=== PATIENT | female | born 1965 | race Caucasian/White ===

== ENCOUNTER 2017-08-27 07:49 | Inpatient (IN) | payer OTHER ==
[~2017-08-27] VITALS: Ht 167.6 cm; Wt 81.6 kg
--- NOTE | 2017-08-27 11:10 | NUR ---
Pre-Assessment Note Assessed client in intake office, client vitals BP 138/73, P 91, RR 16, Temp 98.4, spO2 @ 98% pain 3/10 chronic pain on bilateral legs and R shoulder. Client is a/o x 4, explained unit and facility protocols, client verbalized understanding.
--- NOTE | 2017-08-27 11:45 | NUR ---
Admissions Note 52 year old female admitted to [facility] for withdrawal from alcohol. Client reports PMH hypothyroidism, lymphedema, arthritis, Meniere's disease (2013), migraine, Insomnia. Past surgical history: Breast reduction (1999), gastric bypass (2002), cholecystectomy (1996). Home medications have been reconciled. Client is oriented to unit, educated about protocols and how to work TV and call light in her room. Weight: 180 pounds. Height: 5'6" CIWA 3 Client appears anxious and clammy skin, skin intact. Edema +1 non-pitting at bilateral lower extremities. Bilateral lung clear on auscultation, abdomen soft, non-tender. Clients voice is soft, she avoids eye contact. Client reports allergy to NSAIDS, aspirin. Vegan diet ordered. Full code status ordered. Client denies any history of seizures. LBM was 08/27/17, small/brown/soft. Clients PCP is Dr. Doan. She declined PNA and FLU vaccine at this time, stating she is afraid she might get sick because of it. Client states that she lives with her . Client substance use is as follow, she first started consuming alcohol at age 13, and slowly staring increasing. Now she consumes 1-2 bottles of wine 2 times a week for the past 8 years, except for her longest period of sobriety from Jun 17, 2013 to Oct 28, 2014. Last time consumed 0600 this morning, couple of vodka shots. She reports a prior treatment at [facility] for [address] Reed is with client. Urine was collected upon admission. All safety measures instituted. Seizure precaution. Call light within reach. Will continue to monitor.
[2017-08-27] MEDS ORDERED: NALT50TA PO (12:01)
[2017-08-27] MEDS ORDERED: THYR30TA2 PO (12:01)
[2017-08-27] MEDS ORDERED: SUMA100T PO (12:01)
[2017-08-27] MEDS ORDERED: ONDA8TAB6 PO (12:01)
[2017-08-27] MEDS ORDERED: LACT1CAP59 PO (12:01)
[2017-08-27 12:30] VITALS: BP 125/72
[2017-08-27] MEDS ORDERED: MAGNESIUM HYDROXIDE 30 ML LIQUID UDC PO PRN (13:45)
[2017-08-27] MEDS ORDERED: LOPERAMIDE HCL 2 MG CAPSULE PO PRN ×2 (13:45)
[2017-08-27] MEDS ORDERED: LORAZEPAM 1 MG TABLET PO PRN ×2 (13:45)
[2017-08-27] MEDS ORDERED: SUMATRIPTAN 100 MG PO PRN (13:45)
[2017-08-27] MEDS ORDERED: LORAZEPAM 2 MG/1 ML VIAL IM PRN (13:45)
[2017-08-27] MEDS ORDERED: ONDANSETRON 4 MG/2 ML VIAL IM PRN (13:45)
[2017-08-27] MEDS ORDERED: CLONIDINE HCL 0.1 MG TABLET PO PRN (13:45)
[2017-08-27] MEDS ORDERED: ONDANSETRON ODT 4 MG TAB.RAPDIS SL PRN (13:45)
[2017-08-27] MEDS ORDERED: MAG HYDROX/AL HYDROX/SIMETH 30 ML LIQUID UDC PO PRN (13:45)
[2017-08-27] MEDS ORDERED: DICYCLOMINE HCL 20 MG TABLET PO PRN (13:45)
[2017-08-27] MEDS ORDERED: ACETAMINOPHEN 325 MG TABLET PO PRN (13:45)
[2017-08-27] MEDS ORDERED: IBUPROFEN 400 MG TABLET PO PRN (13:45)
[2017-08-27] MEDS ORDERED: MIRALAX 17 GM POWD.PACK PO PRN (13:45)
[2017-08-27] MEDS ORDERED: diphenhydrAMINE 50 MG CAPSULE PO PRN (13:45)
[2017-08-27] MEDS ORDERED: THIAMINE HCL 200 MG/2 ML VIAL IM ONE (14:00)
--- NOTE | 2017-08-27 14:16 | NUR ---
PRN Zofran 4mg SL administered for emesis x 1 and nausea. Call light within reach. Will continue to monitor. Client refused lazaor erik and saltine crackers.
[2017-08-27 14:33] LABS: *AMPHETAMINE, URINE NEGATIVE (NEGATIVE); *BARBITURATE, URINE NEGATIVE (NEGATIVE); *CANNABINOID, URINE NEGATIVE (NEGATIVE); *COCCAINE, URINE NEGATIVE (NEGATIVE); *OPIATE, URINE NEGATIVE (NEGATIVE); *PHENCYCLIDINE SCREEN,URINE NEGATIVE (NEGATIVE)
[2017-08-27 14:35] LABS: *URINE HCG, QUAL NEGATIVE (NEGATIVE)
--- NOTE | 2017-08-27 14:46 | NUR ---
Reassessment PRN Zofran 4mg SL, client repoerst no more episodes of emesis and relief from nausea.
[2017-08-27 15:17] LABS: BASOPHILS % (AUTO) 0.4 % (0.0-2.0); EOSINOPHILS # (AUTO) 0.2 K/uL (0.0-0.7); EOSINOPHILS % (AUTO) 1.9 % (0.0-7.0); HEMATOCRIT 36.2 % (31.2-41.9); HEMOGLOBIN 12.1 g/dL (10.9-14.3); LYMPHOCYTES # (AUTO) 3.8 K/uL (20.0-40.0); LYMPHOCYTES % (AUTO) 47.3 % (20.5-51.5); MEAN CORPUSCULAR HGB CONC 34 g/dL (32.3-35.6); MEAN CORPUSCULAR VOLUME 89.4 fL (75.5-95.3); MONOCYTES # (AUTO) 0.6 K/uL (2.0-10.0); MONOCYTES % (AUTO) 7.5 % (0.0-11.0); NEUTROPHILS # (AUTO) 3.4 K/uL (1.8-8.9); NEUTROPHILS % (AUTO) 42.9 % (38.5-71.5); PLATELET COUNT (AUTO) 276 K/uL (179-408); RED BLOOD CELL COUNT(AUTO) 4.05 MIL/uL (3.63-4.92)
[2017-08-27 15:19] LABS: THYROID STIMULATING HORMONE 0.295 mIU/mL (0.358-3.740)
[2017-08-27 15:28] LABS: BILIRUBIN,TOTAL 0.1 mg/dL (0.2-1.0); CREATININE 0.8 mg/dL (0.6-1.3); MAGNESIUM 1.8 mg/dL (1.8-2.4); POTASSIUM 4.6 mmol/L (3.5-5.1); TOTAL PROTEIN, SERUM 6.1 g/dL (6.4-8.2)
--- NOTE | 2017-08-27 15:40 | NUR ---
Dr. Reed cotified of alcohol level 0.11, NNO at this time. Client is in room, she is a/o x 4. Will continue to monitor.
[2017-08-27 16:55] VITALS: BP 127/67
--- NOTE | 2017-08-27 17:47 | NUR ---
PRN Imitrex 100mg PO administered for 4/10 ESPINAL. Encourage client to increase PO fluid as tolerated. Call light within reach.
--- NOTE | 2017-08-27 19:27 | NUR ---
END OF SHIFT Client is a 52 y/o female, admitted to [facility] for withdrawal from alcohol. Last CIWA 4 @ 1600. PRN Zofran 4mf SL for nausea, Imitrex 100mg PO for migraine, noted effective. VTE 2, IPCD on, client tolerating well. Adequate PO fluid intake 1096 mL, void x 3, LBM 08/27/17. She denies a hx of seizures. Client reports Allergy to NSAIDS, ASA, full code, VEGAN diet. Client side rails x 2 up/padded. Seizure precautions. Call light within reach.
[2017-08-27 20:00] VITALS: BP_SYST 137; BP_DIAS 74; BP_DIAS 90
--- NOTE | 2017-08-27 20:00 | NUR ---
START OF SHIFT NOTE RECEIVED REPORT FROM DAY SHIFT NURSE. PATIENT IS A 52 YEAR OLD FEMALE ADMITTED FOR ETOH DEPENDENCE. PATIENT IS UNDER OBSERVATION, NO TAPER YET. UPON ADMISSION, PATIENT IS DRINKING 1-3 BOTTLES, 2X A WEEK FOR A YEARS. NO SEIZURE HISTORY. ALLERGIC TO NSAIDS AND ASPIRIN. ON VEGAN DIET. SKIN INTACT. PRN IMITREX AND ZOFRAN GIVEN. SCD PUMP IN PLACE. LAST CIWA 3. RECEIVED PATIENT ALERT AND ORIENTED X 4. RESPIRATION EVEN AND UNLABORED.NO N/V, ANXIOUS, DENIES ANY PAIN AT THIS TIME, PER PATIENT SHE WAS NAUSEOUS AND HAD HEADACHE EARLIER, ZOFRAN AND IMITREX WA EFFECTIVE. ON FALL/SEIZURE PRECAUTION. SAFETY MEASURES IN PLACE. CALL LIGHT IN REACH. WILL CONTINUE TO MONITOR.
[2017-08-28] VITALS: BP 135/76
--- NOTE | 2017-08-28 | NUR ---
CIWA DEFERRED PATIENT SLEEPING. CIWA DEFERRED. RESPIRATION EVEN AND UNLABORED. SAFETY MEASURES IN PLACE. CALL LIGHT IN REACH. WILL CONTINUE TO MONITOR
[2017-08-28 04:00] VITALS: BP 136/79
--- NOTE | 2017-08-28 04:00 | NUR ---
CIWA DEFERRED PATIENT SLEEPING. CIWA DEFERRED. RESPIRATION EVEN AND UNLABORED. SAFETY MEASURES IN PLACE. CALL LIGHT IN REACH. WILL CONTINUE TO MONITOR
[2017-08-28] MEDS: ARMOUR THYROID 30 MG PO SCH (06:31)
[2017-08-28 07:07] LABS: VIT D, 25-HYDROXY 41.4 ng/mL (30.0-100.0)
--- NOTE | 2017-08-28 07:19 | NUR ---
END OF SHIFT NOTE PATIENT IS HERE FOR ETOH DEPENDENCE, PATIENT IS UNDER OBSERVATION, NO TAPER YET. UPON ADMISSION, PATIENT IS DRINKING 1-3 BOTTLES, 2X A WEEK FOR A YEAR. NO SEIZURE HISTORY. ALLERGIC TO NSAIDS AND ASPIRIN. ON VEGAN DIET. SKIN INTACT. MONITORED PATIENT THROUGHOUT THE SHIFT. PATIENT DID NOT REQUIRE ANY PRN MEDICATION DURING SHIFT. PATIENT IN HER ROOM MOST OF THE NIGHT. ENCOURAGE FLUIDS.PATIENT COMPLIANT WITH MEDICATION. ON FALL/SEIZURE PRECAUTION. SAFETY MEASURES IN PLACE. CALL LIGHT IN REACH. WILL CONTINUE TO MONITOR. SLEPT 6 HOURS. FLUID INTAKE 1,409 ML. VOIDED X 3. NO BM. LAST CIWA 3. ENDORSED TO NEXT SHIFT , PATIENT IS REQUESTING FOR DIFFERENT SLEEP MEDICATION.
--- NOTE | 2017-08-28 07:30 | NUR ---
Start of shift note: received pt from retail shift manager nurse, pt is in stable condition no s/s of pain or discomfort, pt is admitted to [facility] for ETOH withdrawal/dependence.pt's last ciwa is 3. will continue to monitor pt for any changes and continue to meet pt's needs
[2017-08-28 09:00] VITALS: BP 135/71
[2017-08-28] MEDS ORDERED: TUBERCULIN,PURIF.PROT.DERIV. 5 TU/0.1 ML TEST ID ONE (09:00)
[2017-08-28] MEDS: FOLIC ACID 1 MG TABLET PO SCH (09:33)
[2017-08-28] MEDS: MULTIVITAMINS,THERAPEUTIC TABLET PO SCH (09:33)
[2017-08-28] MEDS: THIAMINE HCL 100 MG TABLET PO SCH (09:33)
[2017-08-28 13:00] VITALS: BP 124/68
[2017-08-28 14:07] LABS: HEPATITIS B SURFACE AG Negative (Negative)
[2017-08-28 17:19] VITALS: BP 147/82
--- NOTE | 2017-08-28 18:51 | NUR ---
END OF SHIFT NOTE: PT IS IN STABLE CONDITION AT THIS TIME, TB SKIN TEST WAS ADMINISTERED, PT IS ADMITTED TO [facility] FOR ETOH WITHDRAWAL/DEPENDENCE. PT RECEIVED TB SKIN TEST. NO ADVERSE REACTION NOTED AT THIS TIME, PT IS ON PRN TREATMENT AND NOT PRN'S WERE ADMINISTERED. PT'S LAST CIWA IS 2
[2017-08-28 20:00] VITALS: BP 144/74
--- NOTE | 2017-08-28 20:00 | NUR ---
Start of Shift Pt is a 52 year old female admitted for ETOH, PRNs available for s/s of withdrawal. Pt reported consuming ETOH 1-2 bottles 2x week. PMH: hypothyroidism, menieres disease, migraines, breast reduction, cholecystectomy, gastric bypass and knee meniscus repair. Pt reports allergies to NSAIDS & aspirin, fall/seizure precautions, vegan diet and full code. Upon assessment, pt is alert/oriented x4, reports feeling mild anxiety but is ready for next step in recovery, skin flushed, respirations even/unlabored, denies SOB/chest pain, denies n/v/d. SCD pumps in use - VTE 2. safety measures in place, call light within reach, side rails up x2, bed locked and in low position. Will continue to monitor.
[2017-08-29] VITALS: BP 131/74
--- NOTE | 2017-08-29 | NUR ---
CIWA deferred d/t pt sleeping, to assess while pt is awake as ordered. BP 131/74, pulse 68, resp 16, SpO2 97% room air, temp 98.[address], will continue to monitor.
[2017-08-29 04:00] VITALS: BP 139/82
--- NOTE | 2017-08-29 04:00 | NUR ---
CIWA deferred d/t pt sleeping, to assess while pt is awake as ordered. BP 139/82, pulse 70, resp 16, SpO2 99% room air, temp 98.[address], will continue to monitor.
[2017-08-29] MEDS: ARMOUR THYROID 30 MG PO SCH (06:06)
--- NOTE | 2017-08-29 07:00 | NUR ---
End of Shift Pt is a 52 year old female admitted for ETOH, PRNs available for s/s of withdrawal. Pt reported consuming ETOH 1-2 bottles 2x week. PMH: hypothyroidism, menieres disease, migraines, breast reduction, cholecystectomy, gastric bypass and knee meniscus repair. Pt reports allergies to NSAIDS & aspirin, fall/seizure precautions, vegan diet and full code. During shift, pt is alert/oriented x4, reported feeling mildly anxious but reports being ready for next step in recovery, skin flushed, respirations even/unlabored, denies SOB/chest pain, denied n/v/d. SCD pumps in use - VTE 2. No PRN medications administered during shift, CIWA 2. Pt slept for 7 hours, intake of 500 ml PO, voids x2 and stool x0. Safety measures in place, call light within reach, side rails up x2, bed locked and in low position. Endorsed to day shift nurse.
--- NOTE | 2017-08-29 07:30 | NUR ---
START OF SHIFT Rcvd endorsement form ongoing nurse, client is in room, she is a/o x 4, she presents with depressed mood, flat affect, and flushed face. She reports feeling fatigued, restless legs, and decreased appetite. She denies any SI/HI. Encourage client to attend group therapy for skills to maintain sober. Encourage client to increased PO fluid to facilitate detox. Client is a 52 y/o female, admitted to [facility] for withdrawal from alcohol. Last CIWA 2 @ 1999. VTE 2, IPCD on, client tolerating well. LBM 08/28/17. She denies a hx of seizures. Client reports Allergy to NSAIDS, ASA, full code, VEGAN diet. Client side rails x 2 up/padded. Seizure precautions. Call light within reach.
[2017-08-29 08:05] VITALS: BP 100/64
[2017-08-29] MEDS: FOLIC ACID 1 MG TABLET PO SCH (08:54)
[2017-08-29] MEDS: THIAMINE HCL 100 MG TABLET PO SCH (08:54)
[2017-08-29] MEDS: MULTIVITAMINS,THERAPEUTIC TABLET PO SCH (08:54)
[2017-08-29 12:53] VITALS: BP 137/80
[2017-08-29 16:30] VITALS: BP 131/79
--- NOTE | 2017-08-29 19:07 | NUR ---
END OF SHIFT Endorsed client to incoming nurse, client is a 52 y/o female, a/o x 4, admitted to [facility] for withdrawal from alcohol. Last CIWA 3 @ 1600. VTE 2, IPCD at bedside, client verbalizes the need to prevent use the while in bed. Client is compliant with group therapy. She consumes 75-100% of meals,Adequate PO fluid intake 1500mL, tolerated well. Void x 4, LBM 08/29/17. She denies a hx of seizures. Client reports Allergy to NSAIDS, ASA, full code, VEGAN diet. Client side rails x 2 up/padded. Seizure precautions. Call light within reach.
--- NOTE | 2017-08-29 19:30 | NUR ---
START OF SHIFT Received report from day shift nurse,Pt is a 52 y/o female, A/O x 4, admitted for withdrawal from alcohol. Last CIWA 3 @ 1600. VTE 2, IPCD at bedside.She denies a hx of seizures; reports allergy to NSAIDS, ASA, full code,on VEGAN diet.Per report,Pt is scheduled for DC in the morning.All safety measures in place per hospital policy,bed is locked in the lowest position with side rails up and padded x 2. Seizure precautions.Call light within reach.Will continue to monitor.
[2017-08-29 20:00] VITALS: BP 113/62
--- NOTE | 2017-08-30 | NUR ---
V/S refused; CIWA deferred d/t pt sleep. Pt is in deep sleep;breathing is even and non labored; all safety measures in place, will continue to monitor.
--- NOTE | 2017-08-30 04:00 | NUR ---
V/S refused; CIWA deferred d/t pt sleep. Pt remains fast sleep;breathing is even and non labored; all safety measures in place, will continue to monitor.
[2017-08-30] MEDS: ARMOUR THYROID 30 MG PO SCH (06:19)
--- NOTE | 2017-08-30 06:41 | NUR ---
END OF SHIFT Pt is a 52 y/o female, A/O x 4, admitted for withdrawal from alcohol. Last CIWA-2. VTE 2, IPCD at bedside.She denies a hx of seizures; reports allergy to NSAIDS, ASA, full code,on VEGAN diet.Per report,Pt is scheduled for DC this morning.No PRN meds given.Pt slept 7 hrs,fluid intake was 500 mls,voided x 2.No c/o pain or distress noted.All safety measures in place per hospital policy,bed is locked in the lowest position with side rails up and padded x 2. Seizure precautions.Call light within reach.Will continue to monitor. Addendum: 08/30/17 at 0655 by ARIANA INMAN RN LAST CIWA=2.
--- NOTE | 2017-08-30 07:27 | NUR ---
Start of shift note; Received report from night nurse. Patient is a 52 year old female admitted on 08/27/17 for ETOH dependence. Patient completed treatment without any adverse reactions. Patient reported allergies to NSAIDS, ASA. Patient reported history of hypothyroidism, migraines, cholecystectomy, Left knee meniscus repair. Patient's last CIWA is 2. Patient is medically cleared for discharge today. Patient is on fall and seizure precaution. Bed in lowest position, call light within reach. Will continue to monitor patient.
[2017-08-30 08:00] VITALS: BP 128/74
[2017-08-30] MEDS: FOLIC ACID 1 MG TABLET PO SCH (08:27)
[2017-08-30] MEDS: THIAMINE HCL 100 MG TABLET PO SCH (08:27)
[2017-08-30] MEDS: MULTIVITAMINS,THERAPEUTIC TABLET PO SCH (08:27)
--- NOTE | 2017-08-30 09:25 | NUR ---
Discharge note; Patient is AOX4. Patient completed treatment without any adverse reactions. Patient is medically cleared for discharge today. All valuables, belongings, medications given to patient. Patient was escorted out of the hospital at exactly 0925. Patient left in a stable condition. Met all needs.
== END 2017-08-30 09:25 | disposition other institution (70) | DRG 895 ==
LOC: SRC 10:34
PROVIDERS: ADMIT Internal Medicine; ATTEND Internal Medicine
PROC: HZ2ZZZZ Detoxification Services for Substance Abuse Treatment (ICD-10-PCS; principal; 2017-08-27)
PROC: HZ41ZZZ Group Counseling for Substance Abuse Treatment, Behavioral (ICD-10-PCS; principal; 2017-08-27)
DX: F10.230 Alcohol dependence with withdrawal, uncomplicated (principal); K91.2 Postsurgical malabsorption, not elsewhere classified; E03.9 Hypothyroidism, unspecified; F11.90 Opioid use, unspecified, uncomplicated; Y90.5 Blood alcohol level of 100-119 mg/100 ml; Z98.84 Bariatric surgery status; Z82.49 Family history of ischemic heart disease and other diseases of the circulatory system; Z88.6 Allergy status to analgesic agent; G47.00 Insomnia, unspecified; Z79.899 Other long term (current) drug therapy; E55.9 Vitamin D deficiency, unspecified; E53.8 Deficiency of other specified B group vitamins; G43.909 Migraine, unspecified, not intractable, without status migrainosus; E61.1 Iron deficiency; H81.09 Meniere's disease, unspecified ear
CPT/HCPCS: 36415; 70030-TC; 80307; 82306; 83550; 83735; 84443; 84703; 85025; 86580; 86592; 86705; 86803; 87340; 87806; G0480; J3411; Q0162